=== PATIENT | male | born 1960 | race Caucasian/White ===

== ENCOUNTER 2018-09-09 14:59 | Emergency (ER) | payer OTHER ==
[~2018-09-09] VITALS: Ht 182.9 cm; Wt 108.9 kg
[2018-09-09 15:38] LABS: Basophils # (auto) 0 uL; Basophils % (auto) 0.2 % (0.0-2.0); Eosinophils # (auto) 0 uL; Eosinophils % (auto) 0.2 % (0.0-7.0); Hematocrit 32.7 % (41.0-53.0); Hemoglobin 10.9 g/dL (13.5-17.5); Lymphocytes # (auto) 0.9 uL; Lymphocytes % (auto) 7.9 % (10.0-50.0); Mean Corpuscular Hemoglobin 32.3 pg (28.0-32.0); Mean Corpuscular Hgb Conc. 33.2 g/dL (32.0-36.0); Mean Corpuscular Volume 97.3 fL (80.0-100.0); Monocytes # (auto) 0.6 uL; Monocytes % (auto) 5.7 % (0.0-12.0); Neutrophils # (auto) 9.7 uL; Platelet Count (auto) 216 10^3/uL (140-450); Red Blood Cells 3.36 10^6/uL (4.5-5.90); Red Cell Distribution Width 17.5 % (11.8-14.3); White Blood Cell 11.3 10^3/uL (4.4-10.8)
[2018-09-09 15:49] LABS: INR 1.2 (0.9-1.15); Prothrombin Time 12.7 sec (9.27-12.13)
[2018-09-09 15:57] LABS: Alanine Aminotransferase 24 U/L (16-61); Albumin 2.7 g/dL (3.4-5.0); Anion Gap 5 (5-15); Aspartate Aminotransferase 16 U/L (15-37); BUN/Creatinine Ratio 36.4; Blood Urea Nitrogen 24 mg/dL (7-18); Calcium 7.6 mg/dL (8.5-10.1); Carbon Dioxide 26 mmol/L (21-32); Chloride 104 mmol/L (98-107); Glucose 182 mg/dL (74-106); Magnesium 2.2 mg/dL (1.6-2.6); Potassium 3.8 mmol/L (3.5-5.1); Sodium 135 mmol/L (136-145)
[2018-09-09 16:00] LABS: GFR African American > 60 mL/min; GFR Non-African American > 60 mL/min
[2018-09-09 16:01] LABS: Alkaline Phosphatase 72 U/L (45-117); Bilirubin, Total 0.6 mg/dL (0.2-1.0); Total Protein 5.8 g/dL (6.4-8.2)
[2018-09-09 17:47] LABS: Urine Bacteria NONE SEEN /hpf (None Seen); Urine Blood Negative /uL (Negative); Urine Mucus FEW (None Seen); Urine Specific Gravity 1.019 (1.001-1.035); Urine WBC <1 /hpf (0 - 3)
[2018-09-09] MEDS ORDERED: LORazepam 2MG/ML-1ML VIAL IV ONE (18:30)
[2018-09-09] MEDS ORDERED: LABETALOL HCL 5 MG/ML ML 20ML VIAL IV ONE (18:45)
[2018-09-09] MEDS ORDERED: HYDROcodone-ACET 10/325MG TAB PO ONE (22:00)
[2018-09-09] MEDS ORDERED: MORPHINE SULFATE 10 MG/ML INJ 1ML SDV IV ONE (22:15)
[2018-09-09] MEDS ORDERED: ONDANSETRON HCL 4 MG/2 ML VIAL IV ONE (22:15)
[2018-09-09 22:56] LABS: Hematocrit 27.9 % (41.0-53.0); Hemoglobin 9.4 g/dL (13.5-17.5)
[2018-09-10 03:10] LABS: Basophils # (auto) 0.1 uL; Basophils % (auto) 1.3 % (0.0-2.0); Eosinophils # (auto) 0 uL; Hematocrit 30.1 % (41.0-53.0); Hemoglobin 10.1 g/dL (13.5-17.5); Lymphocytes # (auto) 0.8 uL; Lymphocytes % (auto) 8.9 % (10.0-50.0); Mean Corpuscular Hemoglobin 32.4 pg (28.0-32.0); Mean Corpuscular Hgb Conc. 33.5 g/dL (32.0-36.0); Mean Corpuscular Volume 96.8 fL (80.0-100.0); Monocytes # (auto) 0.4 uL; Monocytes % (auto) 4.2 % (0.0-12.0); Neutrophils % (auto) 85.6 % (37.0-80.0); Platelet Count (auto) 208 10^3/uL (140-450); Red Blood Cells 3.11 10^6/uL (4.5-5.90); Red Cell Distribution Width 17.5 % (11.8-14.3); White Blood Cell 9.4 10^3/uL (4.4-10.8)
[2018-09-10] MEDS ORDERED: MORPHINE SULFATE 4 MG/ML SYR/VIAL ONE (06:30)
[2018-09-10] MEDS ORDERED: ONDANSETRON HCL 4 MG/2 ML VIAL ONE ×2 (06:30→08:19)
[2018-09-10] MEDS ORDERED: MORPHINE SULFATE 10 MG/ML INJ 1ML SDV IV ONE (06:45)
[2018-09-10] MEDS ORDERED: ONDANSETRON HCL 4 MG/2 ML VIAL IV ONE ×2 (06:45→08:30)
[2018-09-10 08:50] VITALS: BP 152/71
[2018-09-10] MEDS ORDERED: PANTOPRAZOLE 40 MG/10 ML VIAL IV SCH (10:00)
== END 2018-09-10 09:18 | disposition home or self-care (01) ==
LOC: ER 14:59
DX: R55 Syncope and collapse (principal); R04.0 Epistaxis; I25.10 Atherosclerotic heart disease of native coronary artery without angina pectoris; I35.0 Nonrheumatic aortic (valve) stenosis; R73.9 Hyperglycemia, unspecified; E46 Unspecified protein-calorie malnutrition; I48.91 Unspecified atrial fibrillation; Z90.49 Acquired absence of other specified parts of digestive tract
CPT/HCPCS: 30901; 36415; 70450; 71045; 74176; 80053; 81001; 83036; 83735; 83880; 84484; 85014; 85018; 85025; 85610; 85730; 86850; 86900; 86901; 93005; 94761; 96374; 96375; 96376; 99284; J2060; J2270; J2405

== ENCOUNTER 2023-10-27 15:59 | Inpatient (IN) | payer OTHER, MEDICARE ==
[~2023-10-27] VITALS: Ht 190.5 cm; Wt 144.0 kg
[2023-10-27 17:07] LABS: Basophils # (auto) 0 10 ^3/uL (0-0.2); Eosinophils # (auto) 0 10 ^3/uL (0-0.8); Lymphocytes # (auto) 0.4 10 ^3/uL (0.4-5.4); Monocytes # (auto) 1.1 10 ^3/uL (0-1.3); Neutrophils # (auto) 9.9 10 ^3/uL (1.6-8.6); Nucleated Red Blood Cells % 0.1 %; Red Cell Distribution Width 17.4 % (11.8-14.3); White Blood Cell 11.5 10^3/uL (4.4-10.8)
[2023-10-27 17:08] LABS: Basophils % (auto) 0.1 % (0.0-2.0); Eosinophils % (auto) 0.1 % (0.0-7.0); Hematocrit 34.1 % (41.0-53.0); Lymphocytes % (auto) 3.7 % (10.0-50.0); Mean Corpuscular Hemoglobin 25.3 pg (28.0-32.0); Mean Corpuscular Hgb Conc. 32.3 g/dL (32.0-36.0); Mean Corpuscular Volume 78.2 fL (80.0-100.0); Monocytes % (auto) 9.6 % (0.0-12.0); Neutrophils % (auto) 86.5 % (37.0-80.0); Red Blood Cells 4.36 10^6/uL (4.5-5.90)
[2023-10-27 17:23] LABS: Alanine Aminotransferase 35 U/L (7-40); Albumin 3.3 g/dL (3.2-4.8); Alkaline Phosphatase 84 U/L (46-116); Anion Gap 6 (5-15); Aspartate Aminotransferase 89 U/L (13-40); BUN/Creatinine Ratio 25.4 (10.0-20.0); Bilirubin, Total 0.9 mg/dL (0.2-1.0); Blood Urea Nitrogen 30 mg/dL (9-23); Calcium 8.5 mg/dL (8.5-10.1); Carbon Dioxide 25 mmol/L (20-30); Chloride 103 mmol/L (98-107); Glucose 115 mg/dL (74-106); Potassium 3.1 mmol/L (3.5-5.1); Sodium 134 mmol/L (136-145)
[2023-10-27] MEDS: HYDROmorphone HCL 2 MG/ML VL/or syr IM ONE (17:23)
[2023-10-27 17:24] LABS: Total Protein 5.5 g/dL (5.7-8.2)
[2023-10-27 17:30] VITALS: PULSE 105; PULSE 84; RESP 13; O2SAT 98
[2023-10-27 17:32] LABS: CRP High Sensitivity > 20.00 mg/dL (<1.0)
[2023-10-27] MEDS: IOHEXOL 300 MG/ML 100ML BOTTLE IJ ONE ×2 (17:40→17:53)
[2023-10-27 19:30] VITALS: PULSE 106; RESP 16; O2SAT 92
[2023-10-27] MEDS: SODIUM CHLORIDE 0.9% 1,000 ML IV ONE (20:32)
[2023-10-27] MEDS: FUROSEMIDE 40 MG/4 ML VIAL IV ONE (20:34)
[2023-10-27] MEDS: POTASSIUM CHL 20MEQ/100ML 100 ML IV SCH (21:11)
[2023-10-27] MEDS: FLEET ENEMA(ADULT) 135 ML PR ONE (23:15)
[2023-10-27 23:44] VITALS: PULSE 117; RESP 16; O2SAT 92
[2023-10-28 00:20] LABS: Urine Bacteria FEW /hpf (None Seen); Urine Blood 2+ /uL (Negative); Urine Clarity HAZY (Clear); Urine Color Yellow (Yellow); Urine Hyaline Cast FEW /lpf (0 - 2); Urine Mucus FEW (None Seen); Urine Protein, UAD 1+ (Negative); Urine Specific Gravity 1.016 (1.001-1.035); Urine Urobilinogen Normal (Negative); Urine WBC 4 /hpf (0 - 3); Urine pH 5.5 (5.0-8.0)
[2023-10-28] MEDS: ACETAMINOPHEN 325 MG TAB PO ONE ×2 (00:46→00:48)
[2023-10-28] MEDS: ENOXAPARIN SOD 40 MG/0.4 ML SYRINGE SC ONE ×2 (00:46→00:47)
[2023-10-28] MEDS: HYDROmorphone HCL 2 MG/ML VL/or syr IM ONE (00:48)
[2023-10-28] MEDS: FUROSEMIDE 40 MG/4 ML VIAL IV ONE (00:48)
[2023-10-28] MEDS: dilTIAZem 25 MG/5 ML VIAL IV ONE ×2 (00:50→01:12)
[2023-10-28] MEDS: FLEET ENEMA(ADULT) 135 ML PR ONE ×2 (01:29→23:59)
[2023-10-28] MEDS: LACTULOSE 20Gm/30ML SOLN PO ONE ×2 (01:29→18:23)
[2023-10-28] MEDS: SODIUM CHLORIDE 0.9% 1,000 ML IV SCH (01:30)
[2023-10-28] MEDS ORDERED: hydrALAZINE HCL 20 MG/ML VL IV PRN (01:30)
[2023-10-28] MEDS: cefTRIAXone 1GM/50ML D5W 50 ML IV ONE (02:05)
[2023-10-28] MEDS: HYDROcodone-ACET 5/325MG TAB PO PRN (03:25)
[2023-10-28] MEDS ORDERED: MORPHINE SULFATE INJ 2 MG/ml SYRG IV PRN (03:45)
[2023-10-28] MEDS ORDERED: NITROGLYCERIN 0.4 MG SL TAB SL PRN (03:45)
[2023-10-28] MEDS: MORPHINE SULFATE 4 MG/ML SYR/VIAL IV PRN (04:48)
[2023-10-28] MEDS: ONDANSETRON HCL 4 MG/2 ML VIAL IV PRN (04:48)
[2023-10-28 07:13] LABS: Hemoglobin 11.1 g/dL (13.5-17.5)
[2023-10-28 07:15] LABS: Hematocrit 35.8 % (41.0-53.0); Mean Corpuscular Hemoglobin 25.2 pg (28.0-32.0); Mean Corpuscular Hgb Conc. 31.1 g/dL (32.0-36.0); Red Blood Cells 4.42 10^6/uL (4.5-5.90); Red Cell Distribution Width 17.8 % (11.8-14.3); White Blood Cell 12.5 10^3/uL (4.4-10.8)
[2023-10-28 07:20] LABS: Basophils % (manual) 0 (0.0-2.0); Blast Cells 0; Eosinophils % (manual) 0 (0-7); Metamyelocytes % 0; Myelocytes % 0; Promyelocytes % 0; Reactive Lymphocytes 0
[2023-10-28 07:30] VITALS: PULSE 104; RESP 19; O2SAT 95
[2023-10-28 07:31] LABS: Alanine Aminotransferase 39 U/L (7-40); Albumin 3.2 g/dL (3.2-4.8); Alkaline Phosphatase 93 U/L (46-116); Anion Gap 9 (5-15); Aspartate Aminotransferase 120 U/L (13-40); BUN/Creatinine Ratio 24.2 (10.0-20.0); Bilirubin, Total 0.9 mg/dL (0.2-1.0); Blood Urea Nitrogen 29 mg/dL (9-23); Calcium 7.7 mg/dL (8.7-10.4); Carbon Dioxide 21 mmol/L (20-30); Chloride 104 mmol/L (98-107); Glucose 112 mg/dL (74-106); Potassium 3.6 mmol/L (3.5-5.1); Sodium 134 mmol/L (136-145); Total Protein 5.4 g/dL (5.7-8.2)
[2023-10-28 08:59] LABS: Anisocytosis Slight; Band Neutrophils % (manual) 3; Hypochromia Slight; Lymphocytes % (manual) 4 (10.0-50.0); Monocytes % (manual) 5 (0-12)
[2023-10-28 09:00] LABS: Platelet Estimate Decreased
[2023-10-28] MEDS: FUROSEMIDE 40 MG/4 ML VIAL IV SCH (09:53)
[2023-10-28] MEDS: FAMOTIDINE (10MG/ML) 2ML VL IV SCH (09:56)
[2023-10-28] MEDS ORDERED: ASPirin 81 mg TAB PO SCH (10:00)
[2023-10-28] MEDS ORDERED: ENOXAPARIN SOD 40 MG/0.4 ML SYRINGE SC SCH (10:00)
[2023-10-28 10:41] LABS: Magnesium 2.3 mg/dL (1.6-2.6)
[2023-10-28] MEDS: ASPirin 81 mg TAB PO ONE (14:26)
[2023-10-28 19:40] VITALS: PULSE 114; RESP 19; O2SAT 96
[2023-10-28] MEDS: ACETAMINOPHEN 325 MG TAB PO PRN (20:20)
[2023-10-29] VITALS (8 sets, daily range): BP systolic 97–117; BP diastolic 48–70; PULSE 77–106; RESP 16–20; TEMP 97.6–102; O2SAT 93–99
[2023-10-29] MEDS: cefTRIAXone 1GM/50ML D5W 50 ML IV SCH (03:32)
[2023-10-29 05:30] LABS: Basophils # (auto) 0 10 ^3/uL (0-0.2); Basophils % (auto) 0.2 % (0.0-2.0); Eosinophils # (auto) 0 10 ^3/uL (0-0.8); Eosinophils % (auto) 0.1 % (0.0-7.0); Neutrophils # (auto) 13.5 10 ^3/uL (1.6-8.6)
[2023-10-29 05:42] LABS: Hematocrit 33.5 % (41.0-53.0); Hemoglobin 10.5 g/dL (13.5-17.5); Lymphocytes # (auto) 0.8 10 ^3/uL (0.4-5.4); Lymphocytes % (auto) 4.9 % (10.0-50.0); Mean Corpuscular Hemoglobin 24.9 pg (28.0-32.0); Mean Corpuscular Hgb Conc. 31.4 g/dL (32.0-36.0); Mean Corpuscular Volume 79.2 fL (80.0-100.0); Monocytes # (auto) 1.7 10 ^3/uL (0-1.3); Monocytes % (auto) 10.3 % (0.0-12.0); Neutrophils % (auto) 84.5 % (37.0-80.0); Red Blood Cells 4.23 10^6/uL (4.5-5.90); Red Cell Distribution Width 17.8 % (11.8-14.3)
[2023-10-29 05:56] LABS: Alanine Aminotransferase 41 U/L (7-40); Alkaline Phosphatase 81 U/L (46-116); Anion Gap 9 (5-15); Aspartate Aminotransferase 166 U/L (13-40); BUN/Creatinine Ratio 35.8 (10.0-20.0); Bilirubin, Total 0.9 mg/dL (0.2-1.0); Carbon Dioxide 24 mmol/L (20-30); Chloride 104 mmol/L (98-107); Glucose 108 mg/dL (74-106); Potassium 3.3 mmol/L (3.5-5.1); Sodium 137 mmol/L (136-145); Total Protein 5.2 g/dL (5.7-8.2)
[2023-10-29 06:11] LABS: Blood Urea Nitrogen 43 mg/dL (9-23)
[2023-10-29] MEDS ORDERED: VANCOMYCIN PER PHARMACY 0 MG IV SCH (08:30)
[2023-10-29] MEDS: SODIUM CHLORIDE 0.9% 1,000 ML IV SCH (09:09)
[2023-10-29] MEDS ORDERED: HYDR200T36 PO (10:01)
[2023-10-29] MEDS ORDERED: PANT40T PO (10:01)
[2023-10-29] MEDS ORDERED: LOSA-535 PO (10:01)
[2023-10-29] MEDS ORDERED: TIZA1TAB20 PO (10:01)
[2023-10-29] MEDS ORDERED: ABAT1INJ2 SC (10:01)
[2023-10-29] MEDS ORDERED: METH-1181 PO (10:01)
[2023-10-29] MEDS ORDERED: LEFL1TAB3 PO (10:01)
[2023-10-29] MEDS ORDERED: DULO1CAP6 PO (10:01)
[2023-10-29] MEDS ORDERED: AMLO1TAB23 PO (10:01)
[2023-10-29] MEDS: DOCUSATE SOD 100 MG CAP PO PRN (11:21)
[2023-10-29] MEDS: VANCOMYCIN 1GM/200ML 200 ML IV ONE (11:22)
[2023-10-29] MEDS: PANTOPRAZOLE 40 MG/10 ML VIAL INJ IV ONE (13:09)
[2023-10-29] MEDS: IBUPROFEN 800 MG TAB PO ONE (18:30)
[2023-10-29] MEDS: VANCOMYCIN 1GM/200ML 200 ML IV SCH (18:39)
[2023-10-29] MEDS ORDERED: TRAM50TA2 PO (19:24)
[2023-10-29] MEDS ORDERED: PERCOT PO (19:24)
[2023-10-29] MEDS ORDERED: PREG75CA PO ×2 (19:24)
[2023-10-29] MEDS ORDERED: PRAV20TA3 PO (19:38)
[2023-10-29] MEDS: hydrOXYchloroQUINE SULFATE 200 MG TAB PO SCH (22:33)
[2023-10-30] VITALS (10 sets, daily range): BP systolic 92–126; BP diastolic 59–84; PULSE 68–103; RESP 16–20; TEMP 95.5–98; O2SAT 93–96
[2023-10-30] MEDS: DULoxetine HCL 30 MG CAP PO SCH (08:55)
[2023-10-30] MEDS: LEFLUNOMIDE 20 MG PO SCH (08:56)
[2023-10-30] MEDS: PANTOPRAZOLE 40 MG/10 ML VIAL INJ IV SCH (09:03)
[2023-10-30] MEDS: POTASSIUM CHL 20 Meq TABLET PO SCH (11:09)
[2023-10-30] MEDS: LACTULOSE 20Gm/30ML SOLN PO ONE (11:12)
[2023-10-30 11:15] LABS: Chloride 106 mmol/L (98-107); Sodium 140 mmol/L (136-145)
[2023-10-30 11:16] LABS: Anion Gap 9 (5-15); Carbon Dioxide 25 mmol/L (20-30)
[2023-10-30 11:17] LABS: Calcium 7.2 mg/dL (8.5-10.1)
[2023-10-30 11:21] LABS: BUN/Creatinine Ratio 60.5 (10.0-20.0); Blood Urea Nitrogen 52 mg/dL (9-23); Glucose 106 mg/dL (74-106)
[2023-10-31] VITALS (10 sets, daily range): BP systolic 102–137; BP diastolic 63–72; PULSE 81–103; RESP 17–20; TEMP 98.2–100.7; O2SAT 91–99
[2023-10-31 05:59] LABS: Basophils # (auto) 0 10 ^3/uL (0-0.2); Eosinophils # (auto) 0.1 10 ^3/uL (0-0.8); Eosinophils % (auto) 0.3 % (0.0-7.0); Hematocrit 33.4 % (41.0-53.0); Hemoglobin 10.3 g/dL (13.5-17.5); Lymphocytes # (auto) 0.6 10 ^3/uL (0.4-5.4); Lymphocytes % (auto) 3.3 % (10.0-50.0); Mean Corpuscular Hemoglobin 24.9 pg (28.0-32.0); Mean Corpuscular Hgb Conc. 30.7 g/dL (32.0-36.0); Mean Corpuscular Volume 80.8 fL (80.0-100.0); Monocytes # (auto) 1.2 10 ^3/uL (0-1.3); Monocytes % (auto) 6.7 % (0.0-12.0); Neutrophils # (auto) 16.8 10 ^3/uL (1.6-8.6); Neutrophils % (auto) 89.7 % (37.0-80.0); Red Blood Cells 4.13 10^6/uL (4.5-5.90); Red Cell Distribution Width 18.4 % (11.8-14.3); White Blood Cell 18.7 10^3/uL (4.4-10.8)
[2023-10-31 06:11] LABS: Alanine Aminotransferase 29 U/L (7-40); Albumin 2.4 g/dL (3.2-4.8); Alkaline Phosphatase 73 U/L (46-116); Anion Gap 9 (5-15); Aspartate Aminotransferase 117 U/L (13-40); BUN/Creatinine Ratio 38.8 (10.0-20.0); Calcium 7.3 mg/dL (8.7-10.4); Carbon Dioxide 20 mmol/L (20-30); Chloride 108 mmol/L (98-107); Creatine Kinase IFCC 134 U/L (46-171); Glucose 92 mg/dL (74-106); Potassium 3.4 mmol/L (3.5-5.1); Sodium 137 mmol/L (136-145)
[2023-10-31 06:12] LABS: Bilirubin, Total 0.8 mg/dL (0.2-1.0); Total Protein 4.5 g/dL (5.7-8.2)
[2023-10-31 06:18] LABS: Blood Urea Nitrogen 31 mg/dL (9-23)
[2023-10-31 08:39] LABS: Hypochromia Slight; Platelet Estimate Decreased
[2023-10-31] MEDS: FLEET ENEMA(ADULT) 135 ML PR ONE (11:35)
[2023-11-01] VITALS (10 sets, daily range): BP systolic 112–146; BP diastolic 63–83; PULSE 91–107; RESP 18–20; TEMP 97.6–102; O2SAT 90–94
[2023-11-01 06:05] LABS: Eosinophils # (auto) 0 10 ^3/uL (0-0.8); Lymphocytes # (auto) 0.7 10 ^3/uL (0.4-5.4); White Blood Cell 16.2 10^3/uL (4.4-10.8)
[2023-11-01 06:08] LABS: Basophils # (auto) 0.1 10 ^3/uL (0-0.2); Basophils % (auto) 0.4 % (0.0-2.0); Eosinophils % (auto) 0.1 % (0.0-7.0); Hematocrit 30.7 % (41.0-53.0); Hemoglobin 9.8 g/dL (13.5-17.5); Lymphocytes % (auto) 4.4 % (10.0-50.0); Mean Corpuscular Hemoglobin 25.2 pg (28.0-32.0); Mean Corpuscular Volume 78.5 fL (80.0-100.0); Monocytes # (auto) 1.2 10 ^3/uL (0-1.3); Monocytes % (auto) 7.5 % (0.0-12.0); Neutrophils # (auto) 14.2 10 ^3/uL (1.6-8.6); Neutrophils % (auto) 87.6 % (37.0-80.0); Red Blood Cells 3.91 10^6/uL (4.5-5.90); Red Cell Distribution Width 18.1 % (11.8-14.3)
[2023-11-01 06:27] LABS: Alanine Aminotransferase 25 U/L (7-40); Albumin 2.6 g/dL (3.2-4.8); Alkaline Phosphatase 74 U/L (46-116); Anion Gap 8 (5-15); Aspartate Aminotransferase 86 U/L (13-40); BUN/Creatinine Ratio 44.6 (10.0-20.0); Bilirubin, Total 1.2 mg/dL (0.2-1.0); Blood Urea Nitrogen 33 mg/dL (9-23); Calcium 7.3 mg/dL (8.5-10.1); Carbon Dioxide 22 mmol/L (20-30); Chloride 112 mmol/L (98-107); Glucose 108 mg/dL (74-106); Potassium 3.3 mmol/L (3.5-5.1); Sodium 142 mmol/L (136-145); Total Protein 4.7 g/dL (5.7-8.2)
[2023-11-01] MEDS ORDERED: LIDO5PAD12 TOP (09:31)
[2023-11-01] MEDS: levoFLOXacin 500MG 100 ML IV SCH (10:51)
[2023-11-01] MEDS: POTASSIUM CHL 20 Meq TABLET PO ONE (10:52)
[2023-11-01] MEDS: ABATACEPT 125 MG/ML SC SCH (11:59)
[2023-11-02] VITALS (11 sets, daily range): BP systolic 124–144; BP diastolic 68–77; PULSE 92–113; RESP 18–22; TEMP 97.5–99.2; O2SAT 88–95
[2023-11-02 05:31] LABS: Basophils # (auto) 0.1 10 ^3/uL (0-0.2); Eosinophils # (auto) 0 10 ^3/uL (0-0.8); Eosinophils % (auto) 0.2 % (0.0-7.0); Hematocrit 31.8 % (41.0-53.0); Hemoglobin 10.1 g/dL (13.5-17.5); Mean Corpuscular Volume 80.1 fL (80.0-100.0); Neutrophils # (auto) 14.5 10 ^3/uL (1.6-8.6); Red Blood Cells 3.97 10^6/uL (4.5-5.90)
[2023-11-02 05:33] LABS: Basophils % (auto) 0.4 % (0.0-2.0); Lymphocytes # (auto) 0.7 10 ^3/uL (0.4-5.4); Lymphocytes % (auto) 4.1 % (10.0-50.0); Mean Corpuscular Hemoglobin 25.3 pg (28.0-32.0); Mean Corpuscular Hgb Conc. 31.6 g/dL (32.0-36.0); Monocytes # (auto) 0.8 10 ^3/uL (0-1.3); Monocytes % (auto) 5.1 % (0.0-12.0); Neutrophils % (auto) 90.2 % (37.0-80.0); Red Cell Distribution Width 18.3 % (11.8-14.3)
[2023-11-02 05:50] LABS: Alanine Aminotransferase 26 U/L (7-40); Albumin 2.4 g/dL (3.2-4.8); Alkaline Phosphatase 77 U/L (46-116); Anion Gap 10 (5-15); Aspartate Aminotransferase 76 U/L (13-40); BUN/Creatinine Ratio 58.8 (10.0-20.0); Bilirubin, Total 1.3 mg/dL (0.2-1.0); Calcium 7.2 mg/dL (8.5-10.1); Carbon Dioxide 19 mmol/L (20-30); Chloride 114 mmol/L (98-107); Glucose 127 mg/dL (74-106); Potassium 4.1 mmol/L (3.5-5.1); Sodium 143 mmol/L (136-145); Total Protein 4.6 g/dL (5.7-8.2)
[2023-11-02 05:56] LABS: Blood Urea Nitrogen 47 mg/dL (9-23)
[2023-11-02] MEDS ORDERED: FUROSEMIDE 20 MG/2 ML VIAL IV ONE (10:15)
[2023-11-02 10:16] LABS: Base Excess -3.9 mmol/L (-2.0-2.0)
[2023-11-02] MEDS: IOHEXOL 350 MG/ML 100ML IJ ONE (10:31)
[2023-11-02] MEDS: FUROSEMIDE 40 MG/4 ML VIAL IV SCH (12:36)
[2023-11-02] MEDS: BARIUM SULFATE 98% 340 GM PWDR ONE (13:44)
[2023-11-02] MEDS: EZ PAQUE SUSP 12OZ BTL ONE (13:44)
[2023-11-02] MEDS: EZ-GAS II GRANULES (RADIOLOGY USE) PO ONE (13:45)
[2023-11-02] MEDS: GASTROGRAFIN 120 ML SOL ONE (14:49)
[2023-11-02] MEDS: predniSONE 20 MG TAB PO ONE (19:30)
[2023-11-03] VITALS (12 sets, daily range): BP systolic 105–139; BP diastolic 64–78; PULSE 84–112; RESP 18–20; TEMP 97.4–98.9; O2SAT 91–98
[2023-11-03 05:14] LABS: Basophils # (auto) 0 10 ^3/uL (0-0.2); Basophils % (auto) 0.1 % (0.0-2.0); Eosinophils # (auto) 0 10 ^3/uL (0-0.8)
[2023-11-03 05:17] LABS: Hematocrit 30.1 % (41.0-53.0); Hemoglobin 9.7 g/dL (13.5-17.5); Lymphocytes # (auto) 0.5 10 ^3/uL (0.4-5.4); Lymphocytes % (auto) 3.9 % (10.0-50.0); Mean Corpuscular Hemoglobin 25.1 pg (28.0-32.0); Mean Corpuscular Hgb Conc. 32.1 g/dL (32.0-36.0); Mean Corpuscular Volume 78.2 fL (80.0-100.0); Monocytes # (auto) 0.6 10 ^3/uL (0-1.3); Monocytes % (auto) 5.1 % (0.0-12.0); Neutrophils # (auto) 10.7 10 ^3/uL (1.6-8.6); Neutrophils % (auto) 90.9 % (37.0-80.0); Red Blood Cells 3.85 10^6/uL (4.5-5.90); Red Cell Distribution Width 18.3 % (11.8-14.3); White Blood Cell 11.8 10^3/uL (4.4-10.8)
[2023-11-03 05:33] LABS: Alanine Aminotransferase 21 U/L (7-40); Albumin 2.5 g/dL (3.2-4.8); Alkaline Phosphatase 68 U/L (46-116); Anion Gap 7 (5-15); Aspartate Aminotransferase 43 U/L (13-40); BUN/Creatinine Ratio 52.5 (10.0-20.0); Blood Urea Nitrogen 42 mg/dL (9-23); Calcium 7.7 mg/dL (8.5-10.1); Carbon Dioxide 22 mmol/L (20-30); Chloride 116 mmol/L (98-107); Glucose 136 mg/dL (74-106); Potassium 4.2 mmol/L (3.5-5.1); Sodium 145 mmol/L (136-145)
[2023-11-03 05:34] LABS: Bilirubin, Total 1.1 mg/dL (0.2-1.0); Total Protein 5.2 g/dL (5.7-8.2)
[2023-11-03] MEDS: ASPirin 81 mg TAB PO SCH (09:03)
[2023-11-03] MEDS: predniSONE 20 MG TAB PO SCH (09:05)
[2023-11-03] MEDS ORDERED: FUROSEMIDE 40 MG/4 ML VIAL IV SCH (10:00)
[2023-11-03 12:46] LABS: INR 1.36 (0.9-1.15)
[2023-11-03] MEDS: PIPERACILLIN-TAZOB 3.375GM 100 ML IV ONE (13:46)
[2023-11-03] MEDS: FUROSEMIDE 40 MG/4 ML VIAL IV SCH (13:46)
[2023-11-03] MEDS: PIPERACILLIN-TAZOB 3.375GM 100 ML IV SCH (15:16)
[2023-11-03] MEDS: SODIUM CHLORIDE 0.9% 1,000 ML IV SCH (22:29)
[2023-11-04] VITALS (13 sets, daily range): BP systolic 101–141; BP diastolic 56–91; PULSE 82–113; RESP 15–21; TEMP 97.5–98.8; O2SAT 91–99
[2023-11-04 05:24] LABS: Basophils # (auto) 0 10 ^3/uL (0-0.2); Basophils % (auto) 0.1 % (0.0-2.0); Eosinophils # (auto) 0 10 ^3/uL (0-0.8); Eosinophils % (auto) 0.2 % (0.0-7.0); Hematocrit 30.6 % (41.0-53.0); Hemoglobin 9.4 g/dL (13.5-17.5)
[2023-11-04 05:28] LABS: Lymphocytes # (auto) 0.7 10 ^3/uL (0.4-5.4); Lymphocytes % (auto) 6.6 % (10.0-50.0); Mean Corpuscular Hemoglobin 24.6 pg (28.0-32.0); Mean Corpuscular Hgb Conc. 30.8 g/dL (32.0-36.0); Mean Corpuscular Volume 79.8 fL (80.0-100.0); Monocytes # (auto) 0.8 10 ^3/uL (0-1.3); Neutrophils # (auto) 9.8 10 ^3/uL (1.6-8.6); Neutrophils % (auto) 86.1 % (37.0-80.0); Nucleated Red Blood Cells % 0.1 %; Red Blood Cells 3.84 10^6/uL (4.5-5.90); Red Cell Distribution Width 18.7 % (11.8-14.3); White Blood Cell 11.3 10^3/uL (4.4-10.8)
[2023-11-04 05:44] LABS: Alanine Aminotransferase 14 U/L (7-40); Alkaline Phosphatase 58 U/L (46-116); Calcium 7.7 mg/dL (8.7-10.4); Carbon Dioxide 23 mmol/L (20-30); Chloride 118 mmol/L (98-107)
[2023-11-04 05:45] LABS: Albumin 2.4 g/dL (3.2-4.8); Anion Gap 6 (5-15); Aspartate Aminotransferase 33 U/L (13-40); BUN/Creatinine Ratio 41.7 (10.0-20.0); Blood Urea Nitrogen 35 mg/dL (9-23); Glucose 116 mg/dL (74-106); Potassium 3.9 mmol/L (3.5-5.1); Sodium 147 mmol/L (136-145); Total Protein 5.4 g/dL (5.7-8.2)
[2023-11-04] MEDS ORDERED: FUROSEMIDE 40 MG/4 ML VIAL IV SCH (10:00)
[2023-11-04] MEDS: POLYETHYLENE GLYCOL 17 GM PWDR PO ONE (12:13)
[2023-11-04] MEDS: LACTULOSE 20Gm/30ML SOLN PO ONE (12:13)
[2023-11-05] VITALS (9 sets, daily range): BP systolic 113–132; BP diastolic 58–73; PULSE 99–120; RESP 19–22; TEMP 98–98.6; O2SAT 93–97
[2023-11-05] MEDS: levoFLOXacin 500MG 100 ML IV SCH (10:59)
[2023-11-05] MEDS: predniSONE 20 MG TAB PO SCH (10:59)
[2023-11-05 15:01] LABS: INR 1.39 (0.9-1.15); Partial Thromboplastin Time 23.4 SEC (24.5-34.5); Prothrombin Time 14.6 sec (9.3-11.8)
[2023-11-06] VITALS (13 sets, daily range): BP systolic 115–136; BP diastolic 61–89; PULSE 104–121; RESP 18–19; TEMP 98–99.1; O2SAT 93–100
[2023-11-06 05:54] LABS: Basophils # (auto) 0.1 10 ^3/uL (0-0.2); Eosinophils # (auto) 0 10 ^3/uL (0-0.8); Eosinophils % (auto) 0.3 % (0.0-7.0); Lymphocytes # (auto) 0.8 10 ^3/uL (0.4-5.4)
[2023-11-06 05:57] LABS: Basophils % (auto) 0.7 % (0.0-2.0); Hematocrit 30.8 % (41.0-53.0); Hemoglobin 9.5 g/dL (13.5-17.5); Lymphocytes % (auto) 7.2 % (10.0-50.0); Mean Corpuscular Hemoglobin 24.8 pg (28.0-32.0); Mean Corpuscular Hgb Conc. 30.9 g/dL (32.0-36.0); Mean Corpuscular Volume 80.2 fL (80.0-100.0); Monocytes # (auto) 0.8 10 ^3/uL (0-1.3); Monocytes % (auto) 6.9 % (0.0-12.0); Neutrophils # (auto) 9.4 10 ^3/uL (1.6-8.6); Neutrophils % (auto) 84.9 % (37.0-80.0); Red Blood Cells 3.84 10^6/uL (4.5-5.90); Red Cell Distribution Width 19.3 % (11.8-14.3)
[2023-11-06 06:06] LABS: Alanine Aminotransferase 19 U/L (7-40); Albumin 2.6 g/dL (3.2-4.8); Alkaline Phosphatase 58 U/L (46-116); Anion Gap 6 (5-15); Aspartate Aminotransferase 37 U/L (13-40); BUN/Creatinine Ratio 34.1 (10.0-20.0); Blood Urea Nitrogen 30 mg/dL (9-23); Carbon Dioxide 25 mmol/L (20-30); Chloride 119 mmol/L (98-107); Creatine Kinase IFCC 56 U/L (46-171); Glucose 108 mg/dL (74-106); Potassium 3.6 mmol/L (3.5-5.1); Sodium 150 mmol/L (136-145)
[2023-11-06 06:07] LABS: % Iron Saturation 11.3 % (20-55); Bilirubin, Total 1.4 mg/dL (0.2-1.0); Pre Albumin 9.7 md/dL (10.0-40.0); Total Protein 5.5 g/dL (5.7-8.2)
[2023-11-06 06:08] LABS: Thyroid Stimulating Hormone 2.25 uIU/mL (0.55-4.78)
[2023-11-06 06:16] LABS: CRP High Sensitivity 7.85 mg/dL (<1.0)
[2023-11-06 07:11] LABS: Erythrocyte Sedimentation Rate 12 mm/hr (0-20)
[2023-11-06 08:23] LABS: Wright Stain Ready for Review
[2023-11-06 10:37] LABS: Free T4 (Free Thyroxine) 0.86 ng/dL (0.89-1.76)
[2023-11-06 10:38] LABS: Ferritin 271.3 ng/mL (22-322)
[2023-11-06] MEDS: levoFLOXacin 750MG 150 ML IV SCH (11:02)
[2023-11-06 11:23] LABS: Folate (Folic Acid) 18.44 ng/mL (>5.38)
[2023-11-06] MEDS: LACTULOSE 20Gm/30ML SOLN PO ONE (18:19)
[2023-11-06] MEDS: POLYETHYLENE GLYCOL 17 GM PWDR PO ONE (18:19)
[2023-11-07] VITALS (9 sets, daily range): BP systolic 123–147; BP diastolic 72–92; PULSE 101–119; RESP 15–20; TEMP 97.5–99.1; O2SAT 93–98
[2023-11-07] MEDS: TEMAZEPAM 15 MG CAP PO ONE (00:25)
[2023-11-07 06:13] LABS: Alanine Aminotransferase 15 U/L (7-40); Albumin 2.5 g/dL (3.2-4.8); Alkaline Phosphatase 55 U/L (46-116); Anion Gap 10 (5-15); Aspartate Aminotransferase 35 U/L (13-40); Bilirubin, Total 1.5 mg/dL (0.2-1.0); Blood Urea Nitrogen 20 mg/dL (9-23); Carbon Dioxide 24 mmol/L (20-30); Chloride 118 mmol/L (98-107); Glucose 107 mg/dL (74-106); Potassium 3.2 mmol/L (3.5-5.1); Sodium 152 mmol/L (136-145); Total Protein 5.9 g/dL (5.7-8.2)
[2023-11-07 06:27] LABS: Basophils # (auto) 0 10 ^3/uL (0-0.2); Eosinophils # (auto) 0.1 10 ^3/uL (0-0.8); Eosinophils % (auto) 0.5 % (0.0-7.0); Lymphocytes # (auto) 0.8 10 ^3/uL (0.4-5.4); Monocytes # (auto) 0.8 10 ^3/uL (0-1.3); White Blood Cell 11.2 10^3/uL (4.4-10.8)
[2023-11-07 06:29] LABS: Basophils % (auto) 0.3 % (0.0-2.0); Hematocrit 32.2 % (41.0-53.0); Hemoglobin 9.9 g/dL (13.5-17.5); Mean Corpuscular Hemoglobin 25.1 pg (28.0-32.0); Mean Corpuscular Hgb Conc. 30.6 g/dL (32.0-36.0); Monocytes % (auto) 7.1 % (0.0-12.0); Neutrophils # (auto) 9.5 10 ^3/uL (1.6-8.6); Neutrophils % (auto) 85.1 % (37.0-80.0); Red Blood Cells 3.93 10^6/uL (4.5-5.90); Red Cell Distribution Width 19.4 % (11.8-14.3)
[2023-11-07 07:06] LABS: Haptoglobin 179 mg/dL (32-363); Rheumatoid Arthritis Factor <10.0 IU/mL (<14.0)
[2023-11-07] MEDS: POTASSIUM CHL 20 Meq TABLET PO ONE (07:15)
[2023-11-07] MEDS: POTASSIUM EFFERVESENT TAB 25 MEQ PO ONE (09:04)
[2023-11-07] MEDS: traMADol HCL 50 MG TAB PO PRN (09:04)
[2023-11-07] MEDS: POTASSIUM EFFERVESENT TAB 25 MEQ PO SCH (10:28)
[2023-11-07] MEDS: D5W 5% 1,000 ML IV SCH (17:05)
[2023-11-08] VITALS (9 sets, daily range): BP systolic 101–140; BP diastolic 62–81; PULSE 108–133; RESP 18–81; TEMP 97.6–98.4; O2SAT 93–100
[2023-11-08] MEDS: TEMAZEPAM 15 MG CAP PO PRN (00:32)
[2023-11-08 06:39] LABS: Basophils # (auto) 0 10 ^3/uL (0-0.2); Basophils % (auto) 0.1 % (0.0-2.0); Lymphocytes # (auto) 0.9 10 ^3/uL (0.4-5.4); Monocytes # (auto) 0.6 10 ^3/uL (0-1.3); Nucleated Red Blood Cells % 0.2 %
[2023-11-08 06:43] LABS: Eosinophils # (auto) 0.1 10 ^3/uL (0-0.8); Eosinophils % (auto) 0.7 % (0.0-7.0); Hematocrit 30.2 % (41.0-53.0); Hemoglobin 9.4 g/dL (13.5-17.5); Lymphocytes % (auto) 9.5 % (10.0-50.0); Mean Corpuscular Hemoglobin 25.6 pg (28.0-32.0); Mean Corpuscular Hgb Conc. 31.2 g/dL (32.0-36.0); Mean Corpuscular Volume 82.1 fL (80.0-100.0); Monocytes % (auto) 6.5 % (0.0-12.0); Neutrophils # (auto) 7.9 10 ^3/uL (1.6-8.6); Neutrophils % (auto) 83.2 % (37.0-80.0); Red Blood Cells 3.67 10^6/uL (4.5-5.90); Red Cell Distribution Width 19.3 % (11.8-14.3); White Blood Cell 9.5 10^3/uL (4.4-10.8)
[2023-11-08 06:45] LABS: Alanine Aminotransferase 15 U/L (7-40); Albumin 2.5 g/dL (3.2-4.8); Alkaline Phosphatase 52 U/L (46-116); Anion Gap 7 (5-15); Aspartate Aminotransferase 33 U/L (13-40); BUN/Creatinine Ratio 22.7 (10.0-20.0); Blood Urea Nitrogen 17 mg/dL (9-23); Calcium 8.2 mg/dL (8.7-10.4); Carbon Dioxide 25 mmol/L (20-30); Chloride 112 mmol/L (98-107); Glucose 121 mg/dL (74-106); Potassium 3.2 mmol/L (3.5-5.1); Sodium 144 mmol/L (136-145)
[2023-11-08 06:46] LABS: Bilirubin, Total 1.3 mg/dL (0.2-1.0); Total Protein 5.8 g/dL (5.7-8.2)
[2023-11-08 09:06] LABS: Erythropoietin 88.8 mIU/mL (2.6-18.5)
[2023-11-08] MEDS: predniSONE 20 MG TAB PO SCH (10:05)
[2023-11-08] MEDS: POTASSIUM EFFERVESENT TAB 25 MEQ PO SCH (10:05)
[2023-11-09] VITALS (12 sets, daily range): BP systolic 91–111; BP diastolic 52–72; PULSE 67–114; RESP 18–20; TEMP 97.8–98.1; O2SAT 93–100
[2023-11-09 05:58] LABS: Eosinophils # (auto) 0.1 10 ^3/uL (0-0.8)
[2023-11-09 06:02] LABS: Basophils # (auto) 0 10 ^3/uL (0-0.2); Basophils % (auto) 0.2 % (0.0-2.0); Eosinophils % (auto) 0.8 % (0.0-7.0); Hemoglobin 9.4 g/dL (13.5-17.5); Lymphocytes # (auto) 0.8 10 ^3/uL (0.4-5.4); Lymphocytes % (auto) 8.9 % (10.0-50.0); Mean Corpuscular Hemoglobin 25.8 pg (28.0-32.0); Mean Corpuscular Hgb Conc. 31.3 g/dL (32.0-36.0); Mean Corpuscular Volume 82.3 fL (80.0-100.0); Monocytes # (auto) 0.8 10 ^3/uL (0-1.3); Monocytes % (auto) 8.7 % (0.0-12.0); Neutrophils # (auto) 7.2 10 ^3/uL (1.6-8.6); Neutrophils % (auto) 81.4 % (37.0-80.0); Nucleated Red Blood Cells % 0.2 %; Red Blood Cells 3.64 10^6/uL (4.5-5.90); White Blood Cell 8.9 10^3/uL (4.4-10.8)
[2023-11-09 06:25] LABS: Alanine Aminotransferase 15 U/L (7-40); Albumin 2.4 g/dL (3.2-4.8); Anion Gap 4 (5-15); Aspartate Aminotransferase 28 U/L (13-40); BUN/Creatinine Ratio 38.6 (10.0-20.0); Bilirubin, Total 1.2 mg/dL (0.2-1.0); Calcium 8.2 mg/dL (8.7-10.4); Carbon Dioxide 29 mmol/L (20-30); Chloride 110 mmol/L (98-107); Glucose 94 mg/dL (74-106); Potassium 3.3 mmol/L (3.5-5.1); Sodium 143 mmol/L (136-145); Total Protein 5.4 g/dL (5.7-8.2)
[2023-11-09 06:26] LABS: Blood Urea Nitrogen 27 mg/dL (9-23)
[2023-11-09 06:46] LABS: Alkaline Phosphatase 50 U/L (46-116)
[2023-11-09 07:22] LABS: Red Cell Distribution Width 20.1 % (11.8-14.3)
[2023-11-09 07:45] LABS: Anisocytosis Slight; Platelet Estimate Decreased
[2023-11-09 07:46] LABS: Ovalocytes FEW
[2023-11-09] MEDS: FUROSEMIDE 40 MG/4 ML VIAL IV SCH (09:41)
[2023-11-09] MEDS: ALBUMIN 25% 100 ML IV SCH (16:31)
[2023-11-10] VITALS (11 sets, daily range): BP systolic 101–108; BP diastolic 58–61; PULSE 91–111; RESP 16–20; TEMP 97–98.6; O2SAT 92–99
[2023-11-10] MEDS: ALBUMIN 25% 100 ML IV SCH (00:58)
[2023-11-10 05:55] LABS: Basophils # (auto) 0 10 ^3/uL (0-0.2); Eosinophils # (auto) 0 10 ^3/uL (0-0.8); Eosinophils % (auto) 0.3 % (0.0-7.0); Hemoglobin 8.6 g/dL (13.5-17.5); Lymphocytes # (auto) 0.7 10 ^3/uL (0.4-5.4); Monocytes # (auto) 0.6 10 ^3/uL (0-1.3); Nucleated Red Blood Cells % 0.1 %
[2023-11-10 05:57] LABS: Basophils % (auto) 0.2 % (0.0-2.0); Hematocrit 27.1 % (41.0-53.0); Lymphocytes % (auto) 8.8 % (10.0-50.0); Mean Corpuscular Hemoglobin 25.8 pg (28.0-32.0); Mean Corpuscular Hgb Conc. 31.7 g/dL (32.0-36.0); Mean Corpuscular Volume 81.5 fL (80.0-100.0); Monocytes % (auto) 7.7 % (0.0-12.0); Red Blood Cells 3.33 10^6/uL (4.5-5.90); Red Cell Distribution Width 19.7 % (11.8-14.3); White Blood Cell 8.4 10^3/uL (4.4-10.8)
[2023-11-10 06:09] LABS: Alanine Aminotransferase 10 U/L (7-40); Alkaline Phosphatase 45 U/L (46-116); Anion Gap 5 (5-15); BUN/Creatinine Ratio 29.2 (10.0-20.0); Blood Urea Nitrogen 21 mg/dL (9-23); Calcium 8.3 mg/dL (8.7-10.4); Carbon Dioxide 28 mmol/L (20-30); Chloride 107 mmol/L (98-107); Glucose 97 mg/dL (74-106); Potassium 3.7 mmol/L (3.5-5.1); Sodium 140 mmol/L (136-145)
[2023-11-10 06:10] LABS: Albumin 2.8 g/dL (3.2-4.8); Aspartate Aminotransferase 22 U/L (13-40); Total Protein 5.6 g/dL (5.7-8.2)
[2023-11-10 06:32] LABS: Bilirubin, Total 1.6 mg/dL (0.2-1.0)
[2023-11-10 15:44] LABS: COVID19 ANTIGEN SOFIA FIA NEGATIVE (NEGATIVE)
[2023-11-11] VITALS (10 sets, daily range): BP systolic 106–118; BP diastolic 51–68; PULSE 96–120; RESP 18–20; TEMP 97.4–98.6; O2SAT 92–98
[2023-11-11] MEDS: predniSONE 5 MG TAB PO SCH (09:55)
[2023-11-12] VITALS (8 sets, daily range): BP systolic 101–126; BP diastolic 54–80; PULSE 82–122; RESP 20–22; TEMP 97.4–99; O2SAT 91–96
[2023-11-12 14:00] LABS: Basophils # (auto) 0 10 ^3/uL (0-0.2); Basophils % (auto) 0.2 % (0.0-2.0); Eosinophils # (auto) 0 10 ^3/uL (0-0.8); Eosinophils % (auto) 0.3 % (0.0-7.0); Hematocrit 30.8 % (41.0-53.0); Hemoglobin 9.5 g/dL (13.5-17.5); Lymphocytes # (auto) 0.6 10 ^3/uL (0.4-5.4); Lymphocytes % (auto) 5.6 % (10.0-50.0); Monocytes # (auto) 1.1 10 ^3/uL (0-1.3)
[2023-11-12 14:02] LABS: Mean Corpuscular Hemoglobin 25.7 pg (28.0-32.0); Mean Corpuscular Hgb Conc. 30.8 g/dL (32.0-36.0); Mean Corpuscular Volume 83.5 fL (80.0-100.0); Monocytes % (auto) 9.9 % (0.0-12.0); Neutrophils # (auto) 9.5 10 ^3/uL (1.6-8.6); Red Blood Cells 3.69 10^6/uL (4.5-5.90); Red Cell Distribution Width 20.9 % (11.8-14.3); White Blood Cell 11.3 10^3/uL (4.4-10.8)
[2023-11-12 14:33] LABS: Alkaline Phosphatase 51 U/L (46-116); Anion Gap 8 (5-15); Aspartate Aminotransferase 32 U/L (13-40); BUN/Creatinine Ratio 23.5 (10.0-20.0); Blood Urea Nitrogen 20 mg/dL (9-23); Calcium 8.1 mg/dL (8.5-10.1); Carbon Dioxide 25 mmol/L (20-30); Chloride 103 mmol/L (98-107); Glucose 99 mg/dL (74-106); Potassium 3.5 mmol/L (3.5-5.1); Sodium 136 mmol/L (136-145)
[2023-11-12 14:34] LABS: Alanine Aminotransferase 9 U/L (7-40); Albumin 2.6 g/dL (3.2-4.8); Bilirubin, Total 1.7 mg/dL (0.2-1.0); Total Protein 5.6 g/dL (5.7-8.2)
[2023-11-12 16:11] LABS: Urine Bacteria FEW /hpf (None Seen); Urine Blood 2+ /uL (Negative); Urine Clarity Clear (Clear); Urine Color Yellow (Yellow); Urine Mucus FEW (None Seen); Urine Protein, UAD TRACE (Negative); Urine Specific Gravity 1.016 (1.001-1.035); Urine Urobilinogen Normal (Negative); Urine WBC 7 /hpf (0 - 3)
[2023-11-12] MEDS: POLYETHYLENE GLYCOL 17 GM PWDR PO ONE (18:13)
[2023-11-12] MEDS: DOCUSATE SOD 100 MG CAP PO SCH (21:43)
[2023-11-13] VITALS (13 sets, daily range): BP systolic 100–128; BP diastolic 51–81; PULSE 79–131; RESP 17–21; TEMP 36.7; O2SAT 91–98
[2023-11-13] MEDS: POLYETHYLENE GLYCOL 17 GM PWDR PO PRN (16:50)
[2023-11-13] MEDS: METOPROLOL TARTRATE 25 MG TAB PO ONE (18:45)
[2023-11-13] MEDS: DIGOXIN (250MCG/ML) 2 ML AMPULE IV ONE (19:42)
[2023-11-13] MEDS: METOPROLOL TARTRATE 25 MG TAB PO SCH (22:00)
[2023-11-14] VITALS (14 sets, daily range): BP systolic 93–113; BP diastolic 45–60; PULSE 100–121; RESP 18–20; TEMP 97.1–98.1; O2SAT 94–100
[2023-11-14] MEDS: predniSONE 5 MG TAB PO SCH (11:05)
[2023-11-14] MEDS: BISACODYL 10 MG RECT SUPP PR ONE (17:32)
[2023-11-14] MEDS: FLEET ENEMA(ADULT) 135 ML PR ONE (20:30)
[2023-11-14] MEDS: GOLYTELY 4L KIT PO ONE (20:30)
[2023-11-15] VITALS (14 sets, daily range): BP systolic 89–98; BP diastolic 40–50; PULSE 89–107; RESP 16–18; TEMP 96.7–98.7; O2SAT 94–100
[2023-11-16] VITALS (17 sets, daily range): BP systolic 87–115; BP diastolic 37–53; PULSE 88–128; RESP 14–18; TEMP 97.2–99.9; O2SAT 90–98
[2023-11-16] MEDS: DIGOXIN (250MCG/ML) 2 ML AMPULE IV ONE (22:35)
[2023-11-16] MEDS: ALBUMIN 25% 100 ML IV SCH (22:51)
[2023-11-16] MEDS: APIXABAN 5 MG TAB PO SCH (23:16)
[2023-11-17] VITALS (13 sets, daily range): BP systolic 95–104; BP diastolic 36–48; PULSE 96–122; RESP 16–22; TEMP 96.7–100.3; O2SAT 91–99
[2023-11-17 05:42] LABS: Basophils # (auto) 0 10 ^3/uL (0-0.2); Basophils % (auto) 0.2 % (0.0-2.0); Eosinophils # (auto) 0 10 ^3/uL (0-0.8); Eosinophils % (auto) 0.4 % (0.0-7.0); Hematocrit 25.2 % (41.0-53.0); Hemoglobin 8.1 g/dL (13.5-17.5); Lymphocytes # (auto) 0.9 10 ^3/uL (0.4-5.4); Mean Corpuscular Hemoglobin 26.1 pg (28.0-32.0); Mean Corpuscular Hgb Conc. 32.1 g/dL (32.0-36.0); Mean Corpuscular Volume 81.3 fL (80.0-100.0); Monocytes # (auto) 0.8 10 ^3/uL (0-1.3); Monocytes % (auto) 9.3 % (0.0-12.0); Neutrophils # (auto) 6.9 10 ^3/uL (1.6-8.6); Neutrophils % (auto) 80.1 % (37.0-80.0); White Blood Cell 8.6 10^3/uL (4.4-10.8)
[2023-11-17 05:43] LABS: Red Cell Distribution Width 24.4 % (11.8-14.3)
[2023-11-17 05:56] LABS: Albumin 2.9 g/dL (3.2-4.8); Alkaline Phosphatase 47 U/L (46-116); Anion Gap 5 (5-15); Aspartate Aminotransferase 32 U/L (13-40); BUN/Creatinine Ratio 28.7 (10.0-20.0); Blood Urea Nitrogen 27 mg/dL (9-23); Calcium 8.2 mg/dL (8.5-10.1); Carbon Dioxide 27 mmol/L (20-30); Chloride 101 mmol/L (98-107); Glucose 98 mg/dL (74-106); Potassium 3.9 mmol/L (3.5-5.1); Sodium 133 mmol/L (136-145)
[2023-11-17 05:57] LABS: Bilirubin, Total 1.8 mg/dL (0.2-1.0); Total Protein 5.1 g/dL (5.7-8.2)
[2023-11-17 06:12] LABS: Alanine Aminotransferase < 9 U/L (7-40)
[2023-11-17 06:29] LABS: Platelet Estimate Decreased
[2023-11-17 06:30] LABS: Anisocytosis Moderate
[2023-11-17 06:31] LABS: Ovalocytes FEW; Stomatocytes Mode
[2023-11-17] MEDS: DIGOXIN (250MCG/ML) 2 ML AMPULE IV ONE ×2 (12:53→21:46)
[2023-11-17] MEDS: NYSTATIN (MOUTH-THROAT) 500,000 UNITS/5 ML SUSP MT SCH (22:46)
[2023-11-18] VITALS (13 sets, daily range): BP systolic 99–120; BP diastolic 42–70; PULSE 69–137; RESP 14–24; TEMP 96.3–97.9; O2SAT 91–98
[2023-11-18] MEDS: SUCRALFATE 1 GM/10 ML ORAL SUSP PO SCH (07:09)
[2023-11-18] MEDS: DIGOXIN 0.125 MG TAB PO SCH (09:11)
[2023-11-18 17:10] LABS: Base Excess -3.4 mmol/L (-2.0-2.0)
[2023-11-18 18:49] LABS: Basophils # (auto) 0.1 10 ^3/uL (0-0.2); Basophils % (auto) 1.2 % (0.0-2.0); Eosinophils # (auto) 0 10 ^3/uL (0-0.8); Eosinophils % (auto) 0.3 % (0.0-7.0); Hematocrit 28.6 % (41.0-53.0); Hemoglobin 8.8 g/dL (13.5-17.5); Lymphocytes # (auto) 0.6 10 ^3/uL (0.4-5.4); Lymphocytes % (auto) 5.7 % (10.0-50.0); Mean Corpuscular Hemoglobin 25.5 pg (28.0-32.0); Mean Corpuscular Hgb Conc. 30.8 g/dL (32.0-36.0); Mean Corpuscular Volume 83.1 fL (80.0-100.0); Monocytes # (auto) 0.8 10 ^3/uL (0-1.3); Monocytes % (auto) 7.4 % (0.0-12.0); Neutrophils # (auto) 9.5 10 ^3/uL (1.6-8.6); Neutrophils % (auto) 85.4 % (37.0-80.0); Red Blood Cells 3.44 10^6/uL (4.5-5.90); White Blood Cell 11.1 10^3/uL (4.4-10.8)
[2023-11-18 18:52] LABS: Red Cell Distribution Width 24.4 % (11.8-14.3)
[2023-11-18 19:36] LABS: Anisocytosis Slight; Platelet Estimate Decreased
[2023-11-19] VITALS (12 sets, daily range): BP systolic 89–114; BP diastolic 31–58; PULSE 89–126; RESP 15–31; TEMP 96.8–98.6; O2SAT 97–100
[2023-11-19 08:03] LABS: Basophils # (auto) 0 10 ^3/uL (0-0.2); Basophils % (auto) 0.1 % (0.0-2.0); Eosinophils # (auto) 0 10 ^3/uL (0-0.8); Monocytes % (auto) 8.9 % (0.0-12.0); Neutrophils # (auto) 9.4 10 ^3/uL (1.6-8.6); Nucleated Red Blood Cells % 0.1 %
[2023-11-19 08:07] LABS: Eosinophils % (auto) 0.1 % (0.0-7.0); Hematocrit 28.7 % (41.0-53.0); Lymphocytes # (auto) 0.9 10 ^3/uL (0.4-5.4); Lymphocytes % (auto) 7.7 % (10.0-50.0); Mean Corpuscular Hemoglobin 26.3 pg (28.0-32.0); Mean Corpuscular Hgb Conc. 31.4 g/dL (32.0-36.0); Mean Corpuscular Volume 83.8 fL (80.0-100.0); Neutrophils % (auto) 83.2 % (37.0-80.0); Red Blood Cells 3.43 10^6/uL (4.5-5.90); White Blood Cell 11.3 10^3/uL (4.4-10.8)
[2023-11-19 08:17] LABS: Red Cell Distribution Width 24.1 % (11.8-14.3)
[2023-11-19] MEDS: DIGOXIN (250MCG/ML) 2 ML AMPULE IV ONE (20:31)
[2023-11-19] MEDS: ALBUMIN 25% 100 ML IV ONE (22:27)
[2023-11-20] VITALS (57 sets, daily range): BP systolic 54–123; BP diastolic 27–67; PULSE 51–154; RESP 0–53; TEMP 95–99; O2SAT 93–100
[2023-11-20] MEDS: FUROSEMIDE 40 MG/4 ML VIAL ONE (00:09)
[2023-11-20] MEDS: FUROSEMIDE 40 MG/4 ML VIAL IV ONE ×2 (00:09→05:17)
[2023-11-20] MEDS: NOREPINEPHRINE 8 MG/250ML KIT 250 ML IV SCH (02:29)
[2023-11-20 04:40] LABS: Basophils # (auto) 0 10 ^3/uL (0-0.2); Basophils % (auto) 0.1 % (0.0-2.0); Eosinophils # (auto) 0 10 ^3/uL (0-0.8); Eosinophils % (auto) 0.2 % (0.0-7.0); Hematocrit 36.8 % (41.0-53.0); Lymphocytes # (auto) 1.5 10 ^3/uL (0.4-5.4); Lymphocytes % (auto) 8.1 % (10.0-50.0); Mean Corpuscular Hgb Conc. 27.2 g/dL (32.0-36.0); Mean Corpuscular Volume 95.7 fL (80.0-100.0); Monocytes # (auto) 1.6 10 ^3/uL (0-1.3); Monocytes % (auto) 8.6 % (0.0-12.0); Neutrophils # (auto) 15.4 10 ^3/uL (1.6-8.6); Nucleated Red Blood Cells % 0.1 %; Red Blood Cells 3.85 10^6/uL (4.5-5.90); White Blood Cell 18.5 10^3/uL (4.4-10.8)
[2023-11-20 04:41] LABS: Red Cell Distribution Width 26.7 % (11.8-14.3)
[2023-11-20 04:55] LABS: Alanine Aminotransferase 698 U/L (7-40); Alkaline Phosphatase 341 U/L (46-116); Anion Gap 15 (5-15); BUN/Creatinine Ratio 19.6 (10.0-20.0); Blood Urea Nitrogen 44 mg/dL (9-23); Calcium 9.1 mg/dL (8.7-10.4); Chloride 99 mmol/L (98-107); Glucose 100 mg/dL (74-106); Sodium 129 mmol/L (136-145)
[2023-11-20 04:56] LABS: Albumin 3.2 g/dL (3.2-4.8); Bilirubin, Total 3.6 mg/dL (0.2-1.0); Total Protein 6.2 g/dL (5.7-8.2)
[2023-11-20] MEDS: PHENYLEPHRINE IV 250 ML IV SCH (05:05)
[2023-11-20 05:06] LABS: Aspartate Aminotransferase 1249 U/L (13-40)
[2023-11-20 05:09] LABS: Carbon Dioxide 15 mmol/L (20-30)
[2023-11-20 05:12] LABS: Potassium 5.7 mmol/L (3.5-5.1)
[2023-11-20 06:26] LABS: Anisocytosis Moderate; Platelet Estimate Decreased
[2023-11-20 06:27] LABS: Ovalocytes FEW; Target Cell FEW
[2023-11-20] MEDS: CALCIUM GLUC 1,000mg/50ml-NS 50 ML IV ONE ×2 (06:33→13:52)
[2023-11-20] MEDS: InsuLIN REG 1unit/0.01ml Soln (100units/ml) IV ONE (06:40)
[2023-11-20] MEDS: DEXTROSE (50%) 50ML SYRG IV ONE (06:42)
[2023-11-20] MEDS: SODIUM BICARB 8.4% 50Meq/50ml SYR INJ IV ONE (06:56)
[2023-11-20] MEDS ORDERED: SODIUM BICARB 50mEq/50ml Vial 150 ML in D5W 5% 1,000 ML IV SCH (09:00)
[2023-11-20] MEDS: SODIUM BICARB 50mEq/50ml Vial 150 ML in D5W 5% 1,000 ML IV ONE (09:00)
[2023-11-20] MEDS: MORPHINE SULFATE INJ 2 MG/ml SYRG ONE (12:00)
[2023-11-20] MEDS: MORPHINE SULFATE INJ 2 MG/ml SYRG IV ONE (12:00)
[2023-11-20] MEDS: SODIUM BICARB 8.4% 50Meq/50ml SYR Vial IV ONE (12:03)
[2023-11-20] MEDS: NOREPINEPHRINE BITARTRATE 32 MG in SODIUM CHL 0.9% 218 ML IV SCH (12:30)
[2023-11-20] MEDS: PHENYLEPHRINE INJ 80 MG in SODIUM CHL 0.9% 242 ML IV SCH (12:45)
[2023-11-20] MEDS: LIDOCAINE 2% (LOCAL ANESTH.) PF 5ml SDV ONE (12:58)
[2023-11-20] MEDS: LIDOCAINE 2% (LOCAL ANESTH.) PF 5ml SDV IJ ONE (13:15)
[2023-11-20] MEDS: ALBUMIN 25% 100 ML IV ONE (13:32)
[2023-11-20] MEDS: BUMETANIDE INJECTION 25 MG in GIVE UN-DILUTED 0 ML IV SCH (13:33)
[2023-11-20] MEDS: PIPERACILLIN-TAZOB 3.375GM 100 ML IV SCH (13:33)
[2023-11-20] MEDS: SODIUM ZIRCONIUM CYCL 10 GM PAK PO ONE (13:52)
[2023-11-20] MEDS ORDERED: MORPHINE SULFATE INJ 2 MG/ml SYRG IV PRN (13:52)
[2023-11-20] MEDS ORDERED: ROCURONIUM 10MG/ML 10ML VIAL IV ONE (14:45)
[2023-11-20] MEDS ORDERED: ETOMIDATE (2MG/ML) 20ML VIAL IV ONE (14:45)
[2023-11-20] MEDS ORDERED: EPINEPHrine HCL 250 ML IV ONE (14:49)
[2023-11-20] MEDS ORDERED: ATROPINE SULF 1 MG/10ml SYR ONE (14:59)
[2023-11-20] MEDS ORDERED: SODIUM BICARB 8.4% 50Meq/50ml SYR INJ ONE (14:59)
[2023-11-20] MEDS ORDERED: EPINEPHrine HCL 1 MG/10 ML SYRG ONE (15:03)
[2023-11-20] MEDS ORDERED: InsuLIN REG 1unit/0.01ml Soln (100units/ml) ONE (15:04)
[2023-11-20] MEDS ORDERED: DEXTROSE 50% SYRINGE 50 ML IV ONE ×2 (15:04→15:06)
[2023-11-20] MEDS ORDERED: SODIUM ZIRCONIUM CYCL 10 GM PAK PO SCH (22:00)
== END 2023-11-20 19:47 | DRG 64 ==
LOC: EDBD 15:59 → ER 15:59 → EDUNIT# 15:59 → TELE 10-28 04:12 → TELE-CENTR 10-29 09:35 → TELE-EAST 11-11 20:45 → ICU WEST 11-20 02:22
PROVIDERS: ADMIT Nurse Practitioner Family; ATTEND Family Medicine
PROC: 5A09357 Assistance with Respiratory Ventilation, Less than 24 Consecutive Hours, Continuous Positive Airway Pressure (ICD-10-PCS; 2023-10-29)
PROC: 5A09357 Assistance with Respiratory Ventilation, Less than 24 Consecutive Hours, Continuous Positive Airway Pressure (ICD-10-PCS; 2023-10-30)
PROC: 5A09357 Assistance with Respiratory Ventilation, Less than 24 Consecutive Hours, Continuous Positive Airway Pressure (ICD-10-PCS; 2023-10-31)
PROC: 5A09357 Assistance with Respiratory Ventilation, Less than 24 Consecutive Hours, Continuous Positive Airway Pressure (ICD-10-PCS; 2023-11-01)
PROC: 5A09357 Assistance with Respiratory Ventilation, Less than 24 Consecutive Hours, Continuous Positive Airway Pressure (ICD-10-PCS; 2023-11-02)
PROC: 5A09357 Assistance with Respiratory Ventilation, Less than 24 Consecutive Hours, Continuous Positive Airway Pressure (ICD-10-PCS; 2023-11-03)
PROC: 5A09357 Assistance with Respiratory Ventilation, Less than 24 Consecutive Hours, Continuous Positive Airway Pressure (ICD-10-PCS; 2023-11-04)
PROC: 5A09357 Assistance with Respiratory Ventilation, Less than 24 Consecutive Hours, Continuous Positive Airway Pressure (ICD-10-PCS; 2023-11-05)
PROC: 5A09357 Assistance with Respiratory Ventilation, Less than 24 Consecutive Hours, Continuous Positive Airway Pressure (ICD-10-PCS; 2023-11-06)
PROC: 5A09357 Assistance with Respiratory Ventilation, Less than 24 Consecutive Hours, Continuous Positive Airway Pressure (ICD-10-PCS; 2023-11-07)
PROC: 5A09357 Assistance with Respiratory Ventilation, Less than 24 Consecutive Hours, Continuous Positive Airway Pressure (ICD-10-PCS; 2023-11-08)
PROC: 5A09357 Assistance with Respiratory Ventilation, Less than 24 Consecutive Hours, Continuous Positive Airway Pressure (ICD-10-PCS; 2023-11-09)
PROC: 5A09357 Assistance with Respiratory Ventilation, Less than 24 Consecutive Hours, Continuous Positive Airway Pressure (ICD-10-PCS; 2023-11-10)
PROC: 5A09357 Assistance with Respiratory Ventilation, Less than 24 Consecutive Hours, Continuous Positive Airway Pressure (ICD-10-PCS; 2023-11-11)
PROC: 5A09357 Assistance with Respiratory Ventilation, Less than 24 Consecutive Hours, Continuous Positive Airway Pressure (ICD-10-PCS; 2023-11-13)
PROC: 5A09357 Assistance with Respiratory Ventilation, Less than 24 Consecutive Hours, Continuous Positive Airway Pressure (ICD-10-PCS; 2023-11-14)
PROC: 5A09357 Assistance with Respiratory Ventilation, Less than 24 Consecutive Hours, Continuous Positive Airway Pressure (ICD-10-PCS; 2023-11-15)
PROC: 5A09357 Assistance with Respiratory Ventilation, Less than 24 Consecutive Hours, Continuous Positive Airway Pressure (ICD-10-PCS; 2023-11-16)
PROC: 5A09357 Assistance with Respiratory Ventilation, Less than 24 Consecutive Hours, Continuous Positive Airway Pressure (ICD-10-PCS; 2023-11-17)
PROC: 5A09357 Assistance with Respiratory Ventilation, Less than 24 Consecutive Hours, Continuous Positive Airway Pressure (ICD-10-PCS; 2023-11-18)
PROC: 5A09357 Assistance with Respiratory Ventilation, Less than 24 Consecutive Hours, Continuous Positive Airway Pressure (ICD-10-PCS; 2023-11-19)
PROC: 02HV33Z Insertion of Infusion Device into Superior Vena Cava, Percutaneous Approach (ICD-10-PCS; principal; 2023-11-20)
PROC: B548ZZA Ultrasonography of Superior Vena Cava, Guidance (ICD-10-PCS; 2023-11-20)
PROC: 5A12012 Performance of Cardiac Output, Single, Manual (ICD-10-PCS; 2023-11-20)
DX: I63.9 Cerebral infarction, unspecified (principal); A41.01 Sepsis due to Methicillin susceptible Staphylococcus aureus; G93.41 Metabolic encephalopathy; I21.A1 Myocardial infarction type 2; G93.6 Cerebral edema; J96.01 Acute respiratory failure with hypoxia; R65.21 Severe sepsis with septic shock; K72.00 Acute and subacute hepatic failure without coma; J69.0 Pneumonitis due to inhalation of food and vomit; I50.33 Acute on chronic diastolic (congestive) heart failure; E87.1 Hypo-osmolality and hyponatremia; M62.82 Rhabdomyolysis; N39.0 Urinary tract infection, site not specified; E87.0 Hyperosmolality and hypernatremia; J98.11 Atelectasis; I48.19 Other persistent atrial fibrillation; J90 Pleural effusion, not elsewhere classified; N17.9 Acute kidney failure, unspecified; Z68.41 Body mass index [BMI] 40.0-44.9, adult; D69.6 Thrombocytopenia, unspecified; K59.00 Constipation, unspecified; Z95.1 Presence of aortocoronary bypass graft; Z95.818 Presence of other cardiac implants and grafts; E87.6 Hypokalemia; E78.5 Hyperlipidemia, unspecified; I11.0 Hypertensive heart disease with heart failure; Z96.643 Presence of artificial hip joint, bilateral; I25.10 Atherosclerotic heart disease of native coronary artery without angina pectoris; E66.01 Morbid (severe) obesity due to excess calories; D50.9 Iron deficiency anemia, unspecified; E88.09 Other disorders of plasma-protein metabolism, not elsewhere classified; G89.29 Other chronic pain; I50.82 Biventricular heart failure; K76.0 Fatty (change of) liver, not elsewhere classified; M06.9 Rheumatoid arthritis, unspecified; Z82.49 Family history of ischemic heart disease and other diseases of the circulatory system; Z86.73 Personal history of transient ischemic attack (TIA), and cerebral infarction without residual deficits; Z86.718 Personal history of other venous thrombosis and embolism; Z74.01 Bed confinement status; R13.10 Dysphagia, unspecified
CPT/HCPCS: 36415; 36600; 70450; 70551; 71045; 71260; 72131; 73020; 74176; 74177; 74220; 76604; 76705; 78582; 80048; 80053; 80061; 80162; 80202; 81001; 82040; 82550; 82607; 82668; 82728; 82746; 82805; 82962; 83010; 83036; 83540; 83550; 83605; 83615; 83735; 83880; 84132; 84439; 84443; 84484; 85007; 85025; 85027; 85045; 85379; 85610; 85652; 85730; 86141; 86431; 86880; 86885; 87040; 87077; 87081; 87086; 87088; 87186; 87426; 92507; 92950; 93005; 93306; 93886; 93970; 94660; 95819; 97110; 97116; 97163; 97530; C9113; G0378; J0171; J1815; J1956; J2001; J2405; J2543; J3480; J3490; P9047